=== PATIENT | male | born 1980 | race Caucasian/White ===

== ENCOUNTER → 2016-12-10 | Outpatient (CLI) | payer OTHER ==
[~2016-12-10] MED LIST: ACET-1256 PO; ALOE1LIQ PO; AMOX875T PO; ARGI500T3 PO; CYCL10TA6 PO; DICY10CA55 PO; DPH/ PO; ESCI10TA17 PO; FLUV50TA2 PO; GABA1CAP4 PO; GLUT1TAB PO; HYDR-4330 PO; HYOS1TAB PO; MULT-506 PO; OMEG10007 PO; ONDA4TAB46 PO; OXYC-609 PO; RANI150T2 PO; RANI150T3 PO; TRAZ100T29 PO; TRAZ50TA35 PO; TUMERIC PO; ZINC1TAB PO
[2016-12-10 11:24] LABS: BASO % 0.4 %; BASO ABS # 0.03 K/uL (0-0.2); COMPLETE YES; HEMATOCRIT 45.1 % (42-52); IG% 0.3 %; LYMPH % 28.5 %; LYMPH ABS # 1.91 K/uL (1.2-3.4); MEAN CELL VOLUME 94.7 fL (80-100); MEAN CORPUSCULAR HEMOGLOBIN 33.4 pg (25-34); MEAN CORPUSCULAR HGB CONC 35.3 g/dl (32-36); MEAN PLATELET VOLUME 10.3 fL (7.4-10.4); MONO % 4.8 %; PLATELET COUNT 252 K/uL (130-400); RED BLOOD COUNT 4.76 M/uL (4.7-6.1); WHITE BLOOD COUNT 6.71 K/uL (4.8-10.8)
[2016-12-10 12:02] LABS: ALT/SGPT 25 U/L (12-78); AMYLASE 24 U/L (25-115); BLOOD UREA NITROGEN 7 mg/dl (7-18); BUN/CREATININE RATIO 7.7 (10-20); C-REACTIVE PROTEIN < 0.29 mg/dl (0-0.29); CALCIUM 8.7 mg/dl (8.5-10.1); CARBON DIOXIDE 25 mmol/L (21-32); CHLORIDE 108 mmol/L (98-107); CREATININE 0.94 mg/dl (0.60-1.40); GLUCOSE 101 mg/dl (70-99); POTASSIUM 3.8 mmol/L (3.5-5.1); SODIUM 141 mmol/L (136-145)
[2016-12-10 12:04] LABS: ALB/GLOB RATIO 1.2 (0.9-2); ALKALINE PHOSPHATASE 80 U/L (45-117); AST/SGOT 21 U/L (15-37)
== END | disposition home or self-care (01) ==
LOC: C.LAB1850 10:09
PROVIDERS: ATTEND Internal Medicine
DX: K52.839 Microscopic colitis, unspecified (principal); R19.7 Diarrhea, unspecified

== ENCOUNTER → 2016-12-11 | Day surgery (SDC) | payer OTHER ==
[2016-12-10 13:31] VITALS: Ht 180.3 cm; Wt 122.7 kg
[~2016-12-11] VITALS: Ht 180.3 cm; Wt 122.7 kg
[~2016-12-11] MED LIST changes: -ACET-1256 PO; -CYCL10TA6 PO; -DICY10CA55 PO; -ESCI10TA17 PO; -GABA1CAP4 PO; -HYDR-4330 PO; +LIDOCAINE HCL 2% 2 ML VIAL (20MG/ML) ONE; +MIDAZOLAM HCL 1 MG/ML 2ML VIAL ONE; +ONDANSETRON INJ 2 MG/ML 2 ML VIAL ONE; -OXYC-609 PO; +PROPOFOL IV EMULSION 10 MG/ML 20 ML VIAL IV ONE; -RANI150T2 PO; +SODIUM CHLORIDE 0.9% 500ML 500 ML IV ONE; -TRAZ50TA35 PO
--- NOTE | 2016-12-11 10:25 | Endo History and Physical ---
History & Physical Date of Service: Dec 11, 2016. Chief Complaint: Abdominal pain Referring Physician: Dr. Owen Rutledge History of Present Illness 36 yo CM who presents for EGD secondary to abdominal pain. Past Medical History Arthritis, Anxiety, Seizure Disorder, Sleep Apnea, Depression Past Surgical History Hx Cardiac Surgery: No Hx Internal Defibrillator: No Hx Pacemaker: No Hx Abdominal Surgery: No Hx of Implantable Prosthesis: No Hx Post-Op Nausea and Vomiting: No Hx Cancer Surgery: No Hx Thoracic Surgery: No Hx Orthopedic: Yes (LOW BACK SURGERY X2) Hx Urinary Tract Surgery: No Family History IBD Social History Smoking Status: Current Every Day Smoker Hx Substance Use: No Hx Alcohol Use: Yes (OCCASIONAL) Allergies Coded Allergies: Propoxyphene (Verified Allergy, Intermediate, increase in blood pressure, 12/11/16) Current Medications Reported Home Medications Medications Dose Route/Sig Max Daily Dose Days Date Category Aloe Vera Juice (Aloe Vera) 99.8 % Liq 8 Oz PO HS 12/10/16 Reported Multivitamin (Multivitamins) Tab 1 Tab PO QAM 12/10/16 Reported Zinc (Zinc Gluconate) 50 Mg Tab 1 Tab PO 2XWK 12/10/16 Reported L-Glutamine (Glutamine) 500 Mg Tab 1 Tab PO BID 12/10/16 Reported L-Arginine (Arginine) 500 Mg Tab 1 Tab PO BID 12/10/16 Reported [place]-3 (Fish Oil) 1 Ea Cap 1 Cap PO QAM 12/10/16 Reported [Tumeric] 1 Tab PO QAM 12/10/16 Reported Zantac (Ranitidine HCl) 150 Mg Tab 150 Mg PO BID 12/10/16 Reported Trazodone (Trazodone HCl) 100 Mg Tab 150 Mg PO HS 12/10/16 Reported Levsin (Hyoscyamine Sulfate) 0.125 Mg Tab 2 Tabs PO TID 12/10/16 Reported Zofran (Ondansetron HCl) 4 Mg Tab 4 Mg PO Q8H 12/10/16 Reported Luvox (Fluvoxamine Maleate) 50 Mg Tab 50 Mg PO QAM 12/10/16 Reported Lomotil 2.5-0.025 mg (Diphenoxylate HCl/Atropine) 1 Ea Tab 1 Tab PO TID-QID 12/10/16 Reported Vital Signs Weight (Kilograms): 122.73 Height (Feet): 5 Height (Inches): 11 Date Time Temp Pulse Resp B/P Pulse Ox O2 Delivery O2 Flow Rate FiO2 12/11/16 09:26 36.8 74 20 159/99 96 Room Air Physical Exam General Appearance: WD/WN, no apparent distress Respiratory/Chest: Auscultation: breath sounds normal Cardiovascular: Heart Auscultation: RRR Abdomen: Bowel Sounds: normal Inspection & Palpation: soft, non-distended, no tenderness, guarding & rebound Assessment and Plan Assessment: 36 yo CM who presents for EGD secondary to abdominal pain. Plan: Proceed with EGD.
--- NOTE | 2016-12-11 10:43 | Discharge Instructions ---
Endoscopy Patient Instructions Date / Procedure(s) Performed Dec 11, 2016. EGD Allergy Information Coded Allergies: Propoxyphene (Verified Allergy, Intermediate, increase in blood pressure, 12/11/16) Discharge Date / Findings Dec 11, 2016. Gastritis s/p biopsies Reflux esophagitis Medication Instructions Stopped Medication(s): Patient was told to stop all meds except for his zantac this am. Start Protonix 40mg by mouth each morning 1/2 hour prior to breakfast. Start Carafate 1g by mouth four times daily for 10 days. Stop Zantac at present Reported Home Medications Medications Dose Route/Sig Max Daily Dose Days Date Category Aloe Vera Juice (Aloe Vera) 99.8 % Liq 8 Oz PO HS 12/10/16 Reported Multivitamin (Multivitamins) Tab 1 Tab PO QAM 12/10/16 Reported Zinc (Zinc Gluconate) 50 Mg Tab 1 Tab PO 2XWK 12/10/16 Reported L-Glutamine (Glutamine) 500 Mg Tab 1 Tab PO BID 12/10/16 Reported L-Arginine (Arginine) 500 Mg Tab 1 Tab PO BID 12/10/16 Reported [place]-3 (Fish Oil) 1 Ea Cap 1 Cap PO QAM 12/10/16 Reported [Tumeric] 1 Tab PO QAM 12/10/16 Reported Zantac (Ranitidine HCl) 150 Mg Tab 150 Mg PO BID 12/10/16 Reported Trazodone (Trazodone HCl) 100 Mg Tab 150 Mg PO HS 12/10/16 Reported Levsin (Hyoscyamine Sulfate) 0.125 Mg Tab 2 Tabs PO TID 12/10/16 Reported Zofran (Ondansetron HCl) 4 Mg Tab 4 Mg PO Q8H 12/10/16 Reported Luvox (Fluvoxamine Maleate) 50 Mg Tab 50 Mg PO QAM 12/10/16 Reported Lomotil 2.5-0.025 mg (Diphenoxylate HCl/Atropine) 1 Ea Tab 1 Tab PO TID-QID 12/10/16 Reported Provider Instructions Activity Restrictions - No exercising or heavy lifting for 24 hours. - Do not drink alcohol the day of the procedure. - Do not drive a car or operate machinery until the day after the procedure. - Do not make any important decisions or sign important papers in 24 hours after the procedure. Following Day: - Return to full activity which may include returning to work/school. Diet Start your diet with liquids and light foods (jello, soup, juice, toast). Then eat your usual diet if not nauseated. Treatment For Common After Affects For mild abdominal pain, bloating, or excessive gas: - Rest - Eat lightly - Lie on right side Follow-Up Information Follow-up with Dr. Owen Rutledge as scheduled Anesthesia Information What You Should Know You have had a procedure that required some medicine to reduce anxiety and discomfort. This treatment is called moderate sedation. After receiving the treatment, you may be sleepy, but you will be able to breathe on your own. The effects of the treatment may last for several hours. Follow these instructions along with Activity/Diet recommendations noted above: * Do NOT do anything where dizziness or clumsiness would be dangerous. * Rest quietly at home today, then you can be up and about tomorrow. * Have a responsible person stay with you the rest of today. * You may have had an I.V. today. If so, you may take the dressing off later today. Recommendations Call your doctor if: * Trouble breathing * Continuous vomiting for more than 24 hours * Temperature above 101 degrees * Severe abdominal pain or bloating * Pain not relieved by pain medicine ordered * There is increased drainage or redness from any incision * A large amount of rectal bleeding greater than 2-3 tablespoons. (If you had a polyp/s removed or have hemorrhoids, a small amount of blood - from the rectum is to be expected.) * You have any unanswered questions or concerns. IN THE EVENT OF A SERIOUS EMERGENCY, GO TO THE NEAREST EMERGENCY ROOM Your discharge instructions were prepared by provider Adelso Adler. Patient Instructions Signature Page Tho Alvarez Patient (or Guardian) Signature/Date: I have read and understand the instructions given to me by my caregivers. Caregiver/RN/Doctor Signature/Date: The above-named patient and/or guardian has received patient instructions on this date. + Original Patient Signature Page (only) stays with chart. Please make copy for patient.
--- NOTE | 2016-12-11 10:49 | GI REPORT ---
Procedure Date: 12/11/2016 10:22 AM Procedure: Upper GI endoscopy Indications: Epigastric abdominal pain Medicines: Monitored Anesthesia Care Complications: No immediate complications. Estimated Blood Loss: Estimated blood loss: none. Procedure: Pre-Anesthesia Assessment: - Prior to the procedure, a History and Physical was performed, and patient medications and allergies were reviewed. The patient's tolerance of previous anesthesia was also reviewed. The risks and benefits of the procedure and the sedation options and risks were discussed with the patient. All questions were answered, and informed consent was obtained. Prior Anticoagulants: The patient has taken no previous anticoagulant or antiplatelet agents. ASA Grade Assessment: II - A patient with mild systemic disease. After reviewing the risks and benefits, the patient was deemed in satisfactory condition to undergo the procedure. After obtaining informed consent, the endoscope was passed under direct vision. Throughout the procedure, the patient's blood pressure, pulse, and oxygen saturations were monitored continuously. The scope was introduced through the mouth, and advanced to the second part of duodenum. The upper GI endoscopy was accomplished without difficulty. The patient tolerated the procedure well. Findings: LA Grade A (one or more mucosal breaks less than 5 mm, not extending between tops of 2 mucosal folds) esophagitis with no bleeding was found. Localized mild inflammation characterized by erythema was found in the gastric antrum. Biopsies were taken with a cold forceps for histology. The examined duodenum was normal. Impression: - LA Grade A reflux esophagitis. - Gastritis. Biopsied. - Normal examined duodenum. Recommendation: - Resume previous diet. - Use Protonix (pantoprazole) 40 mg PO BID. - Use sucralfate tablets 1 gram PO QID for 10 days. - Await pathology results. - Return to GI office as previously scheduled. Adelso Adler DO 12/11/2016 10:48:23 AM This report has been signed electronically. Note Initiated On: 12/11/2016 10:22 AM
--- NOTE | 2016-12-11 11:06 | Anesthesiology Progress Note ---
Anesthesia Post Op Note Date & Time Dec 11, 2016 at 11:06 Vital Signs Pain Intensity: 0 Vital Signs Past 12 Hours Date Time Temp Pulse Resp B/P Pulse Ox O2 Delivery O2 Flow Rate FiO2 12/11/16 11:00 70 18 136/86 98 Room Air 12/11/16 10:45 78 16 136/79 98 Room Air 12/11/16 09:26 36.8 74 20 159/99 96 Room Air Notes Mental Status: alert / awake / arousable, participated in evaluation Pt Amnestic to Procedure: Yes Nausea / Vomiting: adequately controlled Pain: adequately controlled Airway Patency, RR, SpO2: stable & adequate BP & HR: stable & adequate Hydration State: stable & adequate Anesthetic Complications: no major complications apparent
[2016-12-11 11:15] VITALS: BP 141/91; PULSE 70; O2SAT 99
== END | disposition home or self-care (01) ==
LOC: C.GI 09:10
PROVIDERS: ATTEND Internal Medicine
DX: K29.70 Gastritis, unspecified, without bleeding (principal); K21.0 Gastro-esophageal reflux disease with esophagitis; Z98.890 Other specified postprocedural states; F17.200 Nicotine dependence, unspecified, uncomplicated

== ENCOUNTER 2017-05-23 17:46 | Emergency (ER) | payer OTHER ==
[~2017-05-23] VITALS: Ht 177.8 cm; Wt 126.7 kg
[~2017-05-23 17:46] MED LIST changes: -AMOX875T PO; -LIDOCAINE HCL 2% 2 ML VIAL (20MG/ML) ONE; -MIDAZOLAM HCL 1 MG/ML 2ML VIAL ONE; -ONDANSETRON INJ 2 MG/ML 2 ML VIAL ONE; -PROPOFOL IV EMULSION 10 MG/ML 20 ML VIAL IV ONE; -SODIUM CHLORIDE 0.9% 500ML 500 ML IV ONE
[2017-05-23 17:52] VITALS: Ht 177.8 cm; Wt 126.7 kg
[2017-05-23] MEDS ORDERED: XYLOCAINE 1%/SOD BICARB 20 ML VIAL INFIL ONE (18:45)
--- NOTE | 2017-05-23 19:10 | EMERGENCY ROOM VISIT NOTE ---
ED Visit Note First contact with patient: 18:31 Chief Complaint: I cut my left leg. History of Present Illness: Mr. Alvarez is a 36-year-old white male who ambulates into the ED complaining of left leg laceration. Patient reports approximately 12 hours before he arrived in the emergency department he reports he tripped over a shovel, the shovel struck his left leg and he sustained a laceration. Did not strike his head or have any signs of head injury since the fall. He reports he immediately cleansed the wound with antibacterial soap and water and put butterfly strips to hold his wound together. He reports that was stable until approximately 10 hours ago and he reports the Steri-Strips fell off and the wound opened up and bleeding reoccurred. Patient once again cleanse the wound and control bleeding prior to arrival at the hospital. Associated with his wound patient reports he has a stab a stinging discomfort in the area of the wound. He rates this discomfort 2/10. The pain is nonradiating. Pain worsens with palpation of the laceration. He has not identified any alleviating factors related to the pain. He has not taken any medications for pain he denies any associated symptoms with his pain including hip pain, knee pain, difficulty flexing or extending the knee or flexing, extending, abducting and abducting the hip. He also also had no chills or fevers and he has not seen any signs of infection around the wound. Review of Systems: As noted above in history of present illness. Past Medical History: Asthma, stomach ulcers, unspecified back surgery. Current Medications: Patient denies. Allergies to Medications: Propoxyphene Social History: Patient is currently employed; he feels safe in his home environment; he admits to tobacco and alcohol use. Tetanus Immunization Status: Patient reports 2015. Physical Examination: Vital Signs: Date Time Temp Pulse Resp B/P (MAP) Pulse Ox O2 Delivery O2 Flow Rate FiO2 05/23/17 17:52 36.9 80 20 151/90 96 Room Air GENERAL: 36-year-old male in no acute distress, nontoxic-appearing, afebrile and hemodynamically stable. NEUROLOGICAL: Awake, alert and oriented to person, place and time. Answering questions appropriately and following commands. Normal gait. Good hand eye coordination. No focal motor or sensory deficits. SKIN: Warm, dry and pink. Left Knee: Just superior and lateral to the patella patient has a 2.2 cm full-thickness laceration. No active bleeding. LEFT LOWER EXTREMITY: No gross bony deformity. No tenderness in the hip, knee, lower leg or ankle. Mild tenderness over his laceration. Full range of motion of the hip and the knee against resistance. Throughout the leg the skin was warm and pink and capillary refill is brisk. He was able to distinguish light sensations through all dermatomes of the lower leg. ED Course: Patient is assessed as noted above. Patient's medication list was reviewed. Patient was offered pain medication and refused. Wound Repair: Complexity: Basic Verbal consent was obtained after the risks and benefits were explained. The skin was prepped with betadine and a sterile field set. Wound edges of the wound was anesthetized with 3.2 ml buffered 1% lidocaine. The wound was explored for foreign bodies and none found. Copious irrigation was performed using sterile saline. With direct pressure the bleeding subsided. Debridement was not performed. The wound edges were approximated using 4-0 Ethilon with 5 simple interrupted sutures. Hemostasis and excellent approximation was achieved. Antibacterial ointment and a sterile dressing applied. No complications and the patient tolerated the procedure well. Patient was educated about tonight's findings and instructed on his treatment plan; he verbalizes understanding and agreement with this plan. Clinical Impression: Laceration of the left leg. Disposition: Patient discharged home in stable condition; prior to departure he was reassessed and subjectively reported he was pain-free. Plan: Comfort measures, wound care, and signs of infection were discussed with the patient. Patient was encouraged to follow-up with PCP or return to the ED for signs of infection and/or suture removal in 10-12 days.
[2017-05-23 19:11] VITALS: BP 155/97; PULSE 73; TEMP 36.9; O2SAT 97
== END 2017-05-23 19:13 | disposition home or self-care (01) ==
LOC: C.EDB 17:49 → C.EDD 19:13
DX: S81.812A Laceration without foreign body, left lower leg, initial encounter (principal); W01.0XXA Fall on same level from slipping, tripping and stumbling without subsequent striking against object, initial encounter; J45.909 Unspecified asthma, uncomplicated; F17.200 Nicotine dependence, unspecified, uncomplicated; Z87.19 Personal history of other diseases of the digestive system; Z98.890 Other specified postprocedural states; Z88.8 Allergy status to other drugs, medicaments and biological substances

== ENCOUNTER → 2018-03-21 | Outpatient (CLI) | payer OTHER ==
--- NOTE | 2018-03-22 05:53 | PAP/PSG TECHNICIAN REPORT ---
[facility] Field Sales Agent Polysomnogram Report Study name: None Report date: 03/22/2018 Study date: 03/21/2018 Referring Physician: DR. VAHID LESLIE Name: HEATHER MOYA Interpreting Physician: Maria Del Carmen Vergara M.D. Date of : 1980 Field Sales Agent: Acacia [employer] [id number]. Sex: Male Age: 37 StudyType: PSG PAP Weight: 295 lbs Height: 37 years, Height 5' 10" BMI: 42.32 Medications: Pantoprazole 40 mg, Oxycodone 5 mg, Acetaminophen 500 mg, Trazodone 150 mg, Probiotic Patient History 37 yr. old male here for a new titration sleep study. Patient had a HST that showed an MAURISIO of 68.8. ESS . Parameters Monitored NPSG: E1-M2, E2-M1, Fp1-M2, Fp2-M1, F3-M2, F4-M2, F4-M1, C3-M2, C4-M2, C4-M1, O1-M2, O2-M2, O2-M1, T3-M2, T4-M1, P3-M2, P4-M1, CHIN1, CHIN2, HR, EKG, Legs, PFLOW, SNOR, FLOW, CFLOW, Tidal Volume, THOR, ABDO, SpO2, PLTH, CPRESS, ETCO2 Wave, ETCO2, pH Sleep Architecture Sleep Stages Time at Lights Off 9:40:46 PM STAGES Time (min.) TST (%) Time at Lights On 5:23:16 AM Wake 65.0 -- Total Recording Time (TRT) 462.50 min. N1 12.5 3 Total Sleep Period (TSP) 435.5 min. N2 180.0 45 Total Sleep Time (TST) 397.5min. N3 114.0 29 Awake Time 65.0 min. REM 91.0 23 Wake after Sleep Onset 38.0 min. Sleep Efficiency (SE) 86 % Sleep Onset Latency (OSCAR) 27.0 min. Number of Stage 1 Shifts None Awakenings 16 Stage Changes 71 Number of REM periods 5 REM 91.0 23 REM Latency 106.5 min. NREM 306.5 77 Body Position Analysis Supine Right Left Side Prone Vertical Total Sleep Time (min.) 419.6 2.0 0.5 2.50 0.0 0.0 Total Sleep Time (%) 99% 1% 0% 1 0% N/A% Total Sleep Time REM (min.) 91.0 0.0 0.0 None 0.0 0.0 Total Sleep Time NREM (min.) 304.0 2.0 0.5 None 0.0 0.0 Intermittent Wake (min.) 24.6 34.5 5.9 None 0.0 0.0 Total Sleep Period (%) 95% None None None None None Arousals Myoclonus (PLM) * Events Count Index Events Count Index Spontaneous 2 0 Events Awake (PLMW) 73 67.4 Respiratory 10 1.7 Events Asleep w/ Arousal (PLMA) 7 1.1 PLM 7 1 Events Asleep w/o Arousal (PLMS) 182 27.5 Snoring 4 1 Total Asleep 189 28.5 Total 23 3 Total 262 34 Respiratory Analysis * CA OA MA CH H RERA Total Count 3 10 0 0 60 0 73 Index 0.5 1.5 0.0 0 9.1 0 11.0 Mean Duration 13.8 17.6 0.0 0.00 30.2 0.0 27.8 Longest Duration 19.5 27.6 0.0 0.00 0.0 0.0 117.2 Respiratory Event Summary Total Supine ~Supine Right Left Prone REM NREM Apneas Count 13 10 3 3 0 N/A 3 10 Index 2.0 2 72 90.0 0.0 N/A 2 2 Hypopneas (4% Desat) Count 60 58 2 1 1 N/A 6 54 Index 9.1 8.8 48 30.0 120.0 N/A 4.0 10.6 Apneas & All Hypopneas Count 73 68 5 4 1 N/A 9 64 Index 11.0 10 120 120 120 N/A 5.9 12.5 Respiratory Events (Parts Counter Sales Person+All Hyp+RERA) Count 73 68 5 4 1 N/A 9 64 Index 11.0 10 120 120.0 120.0 N/A 5.9 12.5 Respiratory Related Arousal Count 10 68 3 2 1 N/A 1 10 Index 1.7 1 72 60 120 N/A 1 2 Snoring Analysis Supine Right Left Prone REM NREM Total Snore duration 16.5 min Snores count 791 3 0 N/A 44 750 794 Snore mean duration 1.2 Sec Snores index 120 90 0 N/A 29.0 146.8 119.8 TST with snoring (%) 4.2% Desaturation Event Summary: Minimum %SpO2 Event Count Mean/Min/Max Duration(sec.) Desaturation Index % Time In Bed > 90 105 23.0 / 6.5 / 58.8 15.1 90.8 86 - 90 2 14.1 / 12.5 / 15.8 3.3 7.9 81 - 85 0 N/A 0.0 1.2 76 - 80 0 N/A 0.0 0.1 71 - 75 0 N/A 0.0 0.0 66 - 70 0 N/A 0.0 0.0 61 - 65 0 N/A 0.0 0.0 56 - 60 0 N/A 0.0 0.0 51 - 55 0 N/A 0.0 0.0 < 50 0 N/A 0.0 0.0 Total REM NREM Awake <50% 0.0 min. 0.0 min. 0.0 min. 0.0 min. 51 - 60% 0.0 min. 0.0 min. 0.0 min. 0.0 min. 61 - 70% 0.0 min. 0.0 min. 0.0 min. 0.0 min. 71 - 80% 0.3 min. 0.3 min. 0.0 min. 0.0 min. 81 - 90% 41.8 min. 2.8 min. 33.9 min. 5.1 min. 91 - 100% 416.6 min. 87.9 min. 270.2 min. 58.5 min. Average 93 94 93 94 Minimum SpO2 79 79 82 82 Desaturation Event Index 13.6 4.0 12.1 36.0 # Desat. Events below 89% 46 3 33 10 Time(%) with Saturation below 89% 3.5 0.4 2.6 0.5 Time(min.) with Saturation below 89% 16.1 1.7 12.0 2.3 Time (mins) REM (mins) NREM (mins) % of TST SpO2 Below 90% 53 4 N49 5.3 SpO2 Below 88% 16 0 0 2 Heart Rate Analysis Min (bpm) Max (bpm) Average (bpm) Awake 57 103 81 NREM 54 95 70 REM 63 87 72 Overall 54 95 71 Supplemental O2 Values Minimum O2 level: None Value Start Time End Time Field Sales Agent Comments Mr. Moya slept in the right, left, and supine and prone positions. No cardiac arrhythmia or PLMs noted. No bruxism noted. CPAP was initiated at +4 CMH2O room air and up-titrated to a level of +14 CMH2O Cflex 1, which nearly eliminated all respiratory events and snoring. A medium Means and Paykel Simplus, was used during titration. Mr. Moya did not wake to use the restroom during the night. Mr. Moya stated, I feel like I was up a lot. The final report will be interpreted and signed by a sleep physician. The completed physician report will then be placed in the patient medical record. Therapy Event: Therapy (cm H20) 0 4 6 8 9 10 11 12 13 14 Total Time at Pressure (min.) 0.3 30.4 33.9 20.9 7.1 11.6 49.4 59.4 132.2 117.4 TST at Pressure (min.) 0.0 1.7 5.4 20.4 7.1 11.6 45.9 58.9 131.7 114.9 # Periods 1 1 1 1 1 1 1 1 1 1 Sleep Onset (min.) N/A 26.7 0.0 0.0 0.0 0.0 0.0 0.0 0.0 0.0 REM Onset (min.) N/A N/A N/A N/A N/A N/A 29.4 55.9 0.0 0.0 Sleep Efficiency % 0 5 16 97 100 100 92 99 99 97 Wakefulness (%) 100.0 94.6 84.0 2.4 0.0 0.0 7.1 0.8 0.4 2.1 Wakefulness (min.) 0.3 28.7 28.5 0.5 0.0 0.0 3.5 0.5 0.5 2.5 NREM 1 (%) 0.0 5.4 10.1 2.0 7.1 0.0 4.0 0.8 1.1 2.1 NREM 1 (min.) 0.0 1.7 3.4 0.4 0.5 0.0 2.0 0.5 1.5 2.5 NREM 2 (%) 0.0 0.0 5.9 62.3 56.7 4.3 25.4 64.7 27.2 62.6 NREM 2 (min.) 0.0 0.0 2.0 13.0 4.0 0.5 12.6 38.4 36.0 73.5 NREM 3 (%) 0.0 0.0 0.0 33.3 36.2 95.7 46.3 27.8 35.2 6.4 NREM 3 (min.) 0.0 0.0 0.0 7.0 2.6 11.1 22.9 16.5 46.5 7.5 REM (%) 0.0 0.0 0.0 0.0 0.0 0.0 17.2 5.8 36.1 26.7 REM (min.) 0.0 0.0 0.0 0.0 0.0 0.0 8.5 3.5 47.7 31.4 # Arousals N/A 2 2 4 1 0 5 3 2 4 Arousal Index N/A 72.6 22.1 11.8 8.5 0.0 6.5 3.1 0.9 2.1 # Snore N/A 3 13 157 36 30 51 329 156 19 Snore Index N/A 109.0 143.7 462.4 306.3 154.7 66.6 335.2 71.1 9.9 AHI N/A 109.0 99.5 82.5 85.1 20.6 5.2 4.1 3.2 2.1 AHI Supine N/A N/A 91.7 82.5 85.1 20.6 5.2 4.1 3.2 2.1 AHI Non-Supine N/A 109.0 141.5 N/A N/A N/A N/A N/A N/A N/A NREM AHI N/A 109.0 99.5 82.5 85.1 20.6 4.8 2.2 1.4 2.2 REM AHI N/A N/A N/A N/A N/A N/A 7.1 34.8 6.3 1.9 RDI N/A 109.0 99.5 82.5 85.1 20.6 5.2 4.1 3.2 2.1 # Obstructive N/A 2 5 2 0 0 0 0 0 1 # Central Ap N/A 0 0 0 0 0 0 0 2 1 # Mixed N/A 0 0 0 0 0 0 0 0 0 # Hypopneas N/A 1 4 26 10 4 4 4 5 2 RERAS N/A 0 0 0 0 0 0 0 0 0 Total Respiratory Events N/A 3 9 28 10 4 4 4 7 4 Time Below SpO2 89.00% (min.) 0.0 0.1 0.3 3.4 2.3 1.2 1.2 4.7 0.6 0.0 Mean NREM SpO2 (%) N/A 94 94 92 91 91 91 92 94 94 Mean REM SpO2 (%) N/A N/A N/A N/A N/A N/A 93 89 94 95 Mean Sleep SpO2 (%) N/A 94 94 92 91 91 92 92 94 95 Min NREM SpO2 (%) N/A 86 83 82 84 84 87 83 90 90 Min REM SpO2 (%) N/A N/A N/A N/A N/A N/A 91 79 86 91 Position Supine (min.) 0.0 0.0 4.6 20.4 7.1 11.6 45.9 58.9 131.7 114.9 Position Non-supine (min.) 0.0 1.7 0.8 0.0 0.0 0.0 0.0 0.0 0.0 0.0 LM Index Sleep N/A 36.3 55.3 103.1 68.1 67.0 66.6 64.2 5.0 1.0 LM Index NREM N/A 36.3 55.3 103.1 68.1 67.0 75.4 67.1 3.6 0.7 LM Index REM N/A N/A N/A N/A N/A N/A 28.2 17.4 7.6 1.9 Mean Heart Rate (bpm) N/A 77 76 74 73 73 74 71 70 68 Min Heart Rate (bpm) N/A 70 68 65 63 63 65 59 55 54
--- NOTE | 2018-03-25 13:48 | POLYSOMNOGRAPH REPORT ---
CLINICAL DATA: 37-year-old male with BMI of 42.[address] Owen Rutledge for a CPAP titration study. He had a home sleep apnea test which showed severe sleep apnea with an MAURISIO of 68.8. His [place] sleepiness score was elevated at 17/24. SLEEP ARCHITECTURE: Total sleep period was 435.5 minutes. Total sleep time was 397.5 minutes divided between 306.5 minutes of non-REM sleep and 91 minutes of REM sleep. Sleep onset latency was 27 minutes. REM latency was 106.5 minutes. Sleep efficiency was 86%. Wake after sleep onset was 38 minutes. Sleep consisted of stage N1 3%, stage N2 45%, stage N3 29%, and REM 23%. AROUSAL DATA: 23 arousals were recorded for an index of 3 per hour. PLM DATA: 189 limb movements during sleep were noted for an index of 28.5 per hour with arousal index of 1.1 per hour. RESPIRATORY DATA: The AHI was 11. There were 3 central and 10 obstructive apneic episodes. The longest apneic episode was 27.6 seconds. There were 60 hypopneic episodes. The mean duration of hypopnea was 30 seconds. OXIMETRY DATA: Nocturnal hypoxemia was seen. Oxygen liss was 79% during REM. Mean saturation was 93%. Time below at 88% was 16 minutes. EKG: Heart rates ranged from 54-95 beats per minute. No arrhythmias were noted. ACCOUNTING ASSOCIATE'S COMMENTS AND TREATMENT SUMMARY: The patient slept in the right, left, supine, and prone positions. A medium Means and Paykel Simplus mask was used. The patient was started on CPAP and titrated up to his final pressure setting of CPAP 14 cm of water pressure, C-Flex setting #1. At this final pressure setting he slept for 115 minutes with an AHI of 2 and normal O2 saturations. IMPRESSION: Severe sleep apnea/hypopnea with nocturnal hypoxemia corrected with CPAP 14 cm of water pressure, C-Flex setting 1, medium Means and Paykel Simplus mask. RECOMMENDATIONS: The patient should be started on the above noted treatment regimen and seen back in followup within 90 days to document efficacy and compliance. Sleep medicine consultation may be of benefit. [facility]ITALAmy
== END | disposition home or self-care (01) ==
LOC: C.NEUR 20:00
PROVIDERS: ATTEND Family Medicine
DX: G47.30 Sleep apnea, unspecified (principal); E66.9 Obesity, unspecified